=== PATIENT | female | born 1950 | race Caucasian/White ===

== ENCOUNTER 2018-08-25 13:30 | Emergency (ER) | payer MEDICARE ==
[2018-08-25 13:42] VITALS: BP 130/78
--- NOTE | 2018-08-25 14:19 | UC ---
GENA General HPI - HPI Summary HPI Summary: Patient returned to [facility] 12 days ago. Her plane ride was 15 hours ago and then was on a 5 [address] ride. Recently started with right knee pain, then it began to radiate to her right calf. Feels like a keisha horse. Notices it when she walks. She started reading on the internet and was worried that she may have a blood clot. No swelling or redness. She denies any CP or SOB. Meds : Reviewed. - History of Current Complaint Chief Complaint: UCLowerExtremity Stated Complaint: RT LEG PAIN Time Seen by Provider: 08/25/18 14:05 Pain Intensity: 4 - Allergy/Home Medications Allergies/Adverse Reactions: Allergies Allergy/AdvReac Type Severity Reaction Status Date / Time No Known Allergies Allergy Verified 08/25/18 13:42 Home Medications: Home Medications NK [No Home Medications Reported] 08/25/18 [History Confirmed 08/25/18] PMH/Surg Hx/FS Hx/Imm Hx Previously Healthy: Yes - Surgical History Surgical History: Yes Surgery Procedure, Year, and Place: 1999 TRIGEMINAL NEUROMA EXC. FACIAL FX REPAIR 1973 - Social History Alcohol Use: Weekly Alcohol Amount: 3-4/WEEK Substance Use Type: None Smoking Status (MU): Never Smoked Tobacco Review of Systems All Other Systems Reviewed And Are Negative: Yes Musculoskeletal: Positive: Calf Tenderness Physical Exam Triage Information Reviewed: Yes Appearance: Well-Appearing Vital Signs: Initial Vital Signs Temp 98 F 08/25/18 13:39 Pulse 73 08/25/18 13:39 Resp 17 08/25/18 13:39 BP 130/78 08/25/18 13:39 Pulse Ox 100 08/25/18 13:39 Eye Exam: Normal ENT Exam: Normal Respiratory: Positive: Lungs clear, Normal breath sounds Cardiovascular: Positive: RRR, No Murmur Musculoskeletal: Positive: Other: - right lower ext - mildly positive homans sign. No redness, ropiness or swelling. POsitive pulses Skin Exam: Normal Diagnostics - Radiology US doppler RLE Radiology Interpretation Completed By: Radiologist Course/Dx - Course Course Of Treatment: This is a 68 yr old with right calf pain after a 15 hour plane ride. Assessment. U/S doppler - Pending. SIgn out given to Dr. Segal awaiting doppler results - Diagnoses Provider Diagnosis: Right calf pain Discharge - Sign-Out/Discharge Documenting (check all that apply): Sign-Out Patient Signing out patient TO: Amelia Segal All imaging exams completed and their final reports reviewed: No - Discharge Plan Referrals: Juan Daniel Silva MD [Primary Care Provider] -
--- NOTE | 2018-08-25 15:31 | UC ---
- Progress Note Progress Note: RLE US SHOWS A OWEN'S CYST BUT NO RIGHT LOWER EXTREMITY DEEP VEIN THROMBOSIS. ADVISED TO REST KNEE, USE OTC NSAIDS FOR DISCOMFORT AND CALL ORTHO FOR A F/U APPT. Course/Dx - Diagnoses Provider Diagnoses: Right calf pain Discharge - Sign-Out/Discharge Documenting (check all that apply): Patient Departure All imaging exams completed and their final reports reviewed: Yes - Discharge Plan Condition: Stable Disposition: HOME Patient Education Materials: Bakers Cyst (ED) Referrals: Juan Daniel Silva MD [Primary Care Provider] - If Needed Fede Rolle MD [Medical Doctor] - 1 Week Additional Instructions: NO BLOOD CLOT SEEN ON ULTRASOUND TODAY. POPLITEAL (OWEN'S) CYST What is a Bakers cyst? A Bakers cyst is a fluid-filled sac behind the knee. This cyst can cause symptoms, such as pain or knee stiffness. The medical term for a Bakers cyst is popliteal cyst. What are the symptoms of a Bakers cyst? Bakers cysts do not always cause symptoms. When they do, the symptoms can include: - Pain in the back of the knee - Knee stiffness - Swelling or a bulge at the back of the knee, especially when the leg is straight People often find that their symptoms get worse if they stand for a long time or bend their knee too far. Symptoms and swelling sometimes also get worse with activity. In some cases, Bakers cysts tear open and leak their fluid onto nearby tissues. If that happens, symptoms can include calf swelling and redness, or bruising below the knee. Should I see a doctor or nurse? Yes, if you have the symptoms described above , see your doctor or nurse. Not all swelling behind the knee is due to a Owen s cyst. Your doctor or nurse can look at your knee and talk to you about your symptoms to decide what to do next. Will I need tests? Probably not. If you have a Bakers cyst, your doctor or nurse will probably be able to tell just by doing an exam. But if he or she is not sure, you might need an imaging test, such as an X-ray or an ultrasound. ( An ultrasound uses sound waves to create a picture of the inside of your body.) How is a Bakers cyst treated? The main treatment is an injection of steroid medicines directly into the knee. These steroids are not the same ones athletes take to build muscle. These steroids reduce swelling and inflammation. If treatment with steroids medicines does not work, other (much less used) options include: - Draining the cyst with a needle - Surgery to remove the cyst Is there anything I can do on my own to feel better? Maybe. Your doctor or nurse might suggest resting the knee and taking medicines called NSAIDs for 1 to 2 weeks before he or she orders an imaging test or suggests a knee injection. Some examples of NSAIDs include ibuprofen and naprosyn. - Billing Disposition and Condition Condition: STABLE Disposition: Home
== END 2018-08-25 15:40 | disposition home or self-care (01) ==
LOC: UCEAST 13:30
DX: M79.604 Pain in right leg (principal)
CPT/HCPCS: 99211; G0463

== ENCOUNTER 2019-03-26 11:56 | Emergency (ER) | payer MEDICARE ==
[2019-03-26 12:07] VITALS: BP 123/79
--- NOTE | 2019-03-26 12:10 | UC ---
Skin Complaint HPI - HPI Summary HPI Summary: tick bite on her back. it was removed last night but pt would like it to be checked. unsure when she got it - History of Current Complaint Chief Complaint: UCSkin Time Seen by Provider: 03/26/19 12:09 Stated Complaint: TICK BITE Hx Obtained From: Patient Hx Last Menstrual Period: post menopause Pain Intensity: 0 Aggravating Factor(s): Nothing Alleviating Factor(s): Nothing - Allergy/Home Medications Allergies/Adverse Reactions: Allergies Allergy/AdvReac Type Severity Reaction Status Date / Time No Known Allergies Allergy Verified 12/29/18 15:36 PMH/Surg Hx/FS Hx/Imm Hx - Surgical History Surgical History: Yes Surgery Procedure, Year, and Place: 1999 TRIGEMINAL NEUROMA EXC. FACIAL FX REPAIR 1973 - Social History Alcohol Use: Weekly Alcohol Amount: 3-4/WEEK Substance Use Type: None Smoking Status (MU): Never Smoked Tobacco Review of Systems All Other Systems Reviewed And Are Negative: Yes Constitutional: Negative: Fever, Chills, Fatigue Skin: Positive: Other - small red area on R flank. Negative: Rash Musculoskeletal: Negative: Arthralgia Neurological: Negative: Headache, Weakness, Paresthesia, Numbness Physical Exam Triage Information Reviewed: Yes Appearance: Well-Appearing Vital Signs: Initial Vital Signs Temp 97.9 F 03/26/19 12:01 Pulse 67 03/26/19 12:01 Resp 18 03/26/19 12:01 BP 123/79 03/26/19 12:01 Pulse Ox 98 03/26/19 12:01 Vital Signs Reviewed: Yes Respiratory Exam: Normal Cardiovascular Exam: Normal Skin: Positive: Significant Lesion(s) - 5mm of hardened area, nontender with umbilicated central area where tick was Course/Dx - Course Course Of Treatment: Engorged tick removed yesterday on R flank by pt. Pt denies any other symptoms but [place] endemic [place] and tick was engorged; reasonable to tx w/ prophylaxis. Discussed the prevalence and that it may not be full protection but it could help. She agreed to tx, antibx rx'd. - Differential Diagnoses - Skin Complaint Differential Diagnoses: Tick Born Illness, Other - Diagnoses Provider Diagnosis: Tick bite Discharge ED - Sign-Out/Discharge Documenting (check all that apply): Patient Departure All imaging exams completed and their final reports reviewed: No Studies - Discharge Plan Condition: Good Disposition: HOME Prescriptions: DOXYcycline CAP(*) [DOXYcycline 100MG CAP(*)] 200 mg PO ONCE 1 Days #2 cap Patient Education Materials: Lyme Disease (ED) Referrals: Juan Daniel Silva MD [Primary Care Provider] - Additional Instructions: If you develop fever please go to your pcp for evaluation. - Billing Disposition and Condition Condition: GOOD Disposition: Home
== END 2019-03-26 12:28 | disposition home or self-care (01) ==
LOC: UCEAST 11:56
DX: S30.861A Insect bite (nonvenomous) of abdominal wall, initial encounter (principal); W57.XXXA Bitten or stung by nonvenomous insect and other nonvenomous arthropods, initial encounter; Y92.9 Unspecified place or not applicable
CPT/HCPCS: 99212; G0463